=== PATIENT | male | born 1940 | race Caucasian/White ===

== ENCOUNTER 2021-06-04 14:45 | Observation (INO) ==
[2021-06-04 16:08] LABS: Basophils # 0.1 K/mcL (0.0-0.2); Basophils % 0.7 %; Eosinophils # 0.1 K/mcL (0.0-0.6); Eosinophils % 1.9 %; Hematocrit 27.9 % (37.5-50.1); Hemoglobin 7.3 g/dL (12.9-16.9); Immature Granulocytes % 0.4 % (0-4); Lymphocytes # 1.1 K/mcL (0.6-4.6); Lymphocytes % 14.2 %; Mean Corpuscular HGB Conc 26.2 g/dL (31.6-35.5); Mean Corpuscular Hemoglobin 18.7 pg (28.0-33.3); Mean Corpuscular Volume 71.4 fL (83.0-100.0); Mean Platelet Volume 9.9 fL (9.4-12.4); Monocytes # 0.4 K/mcL (0.0-1.3); Monocytes % 5.2 %; Neutrophils # 5.8 K/mcL (1.6-8.9); Platelet Count 364 K/mcL (140-400); Red Blood Count 3.91 M/mcL (4.19-5.50); Red Cell Distribution Width 21.8 % (11.5-14.5); Segmented Neutrophils % 77.6 %; White Blood Count 7.5 K/mcL (4.3-11.1)
[2021-06-04 16:19] LABS: Activated Partial Thrombo Time 67.7 Seconds (26.0-36.0)
[2021-06-04 16:23] LABS: Anisocytosis 2+ (Not Present); Hypochromasia Present (Not Present); Platelet Estimate Normal (Normal)
[2021-06-04 16:25] LABS: INR 6.3; Prothrombin Time 68.7 Seconds (9.4-12.1)
[2021-06-04 16:31] LABS: Alanine Aminotransferase 7 Units/L (7-52); Albumin 3.5 g/dL (3.5-5.7); Albumin/Globulin Ratio 0.9 (1.1-2.2); Alkaline Phosphatase 118 Units/L (34-104); Aspartate Amino Transferase 11 Units/L (13-39); BUN/Creatinine Ratio 23 (6-26); Bilirubin,Direct 0.2 mg/dL (0.0-0.2); Bilirubin,Indirect 0.4 mg/dL (0.0-1.0); Bilirubin,Total 0.6 mg/dL (0.3-1.0); Blood Urea Nitrogen 20 mg/dL (8-23); Calcium 8.3 mg/dL (8.6-10.3); Carbon Dioxide 24 mEq/L (23-29); Chloride 105 mEq/L (98-107); Globulin 4.1 g/dL (2.4-3.5); Glucose 146 mg/dL (70-105); Lipase 22 Units/L (11-82); Osmolality,Calculated 291 (280-300); Potassium 4.6 mEq/L (3.5-5.1); Sodium 138 mEq/L (136-145); Total Protein 7.6 g/dL (6.4-8.9); eGFR For African Americans > 60 (> 60); eGFR For Non-African Americans > 60 (> 60)
[2021-06-04 16:35] LABS: Troponin I 0.04 ng/mL (< 0.04)
[2021-06-04] MEDS ORDERED: Furosemide 40 MG/4 ML VIAL IVP ONE (17:18)
[2021-06-04 17:36] LABS: Bilirubin,Urine Negative (Negative); Blood,Urine Small (Negative); Clarity,Urine Clear (Clear); Color,Urine Yellow (Yellow); Glucose,Urine (UA) Normal (Normal); Ketones,Urine Negative (Negative); Leukocyte Esterase,Urine Trace (Negative); Nitrite,Urine Positive (Negative); PH,Urine 5.5 pH Units (5.0-8.0); Protein,Urine >=300 mg/dL (Neg-Trace); Specific Gravity,Urine 1.025 (1.010-1.025); Urobilinogen,Urine Normal (Normal)
[2021-06-04 17:41] LABS: Bacteria,Urine Many per hpf (None-Few); WBC,Urine 50-100 per hpf (0-3)
[2021-06-04] MEDS ORDERED: *HR* Phytonadione 5 MG TABLET PO ONE (17:57)
[2021-06-04] MEDS ORDERED: Acetaminophen 325 MG TABLET PO PRN (19:08)
[2021-06-04] MEDS ORDERED: Ondansetron 4 MG/2 ML VIAL IVP PRN (19:08)
[2021-06-04] MEDS ORDERED: Naloxone 0.4 MG/ML INJ IVP PRN (19:08)
[2021-06-04] MEDS ORDERED: Mag Hydrox/Al Hydrox/Simeth 30 ML UDC PO PRN (19:08)
[2021-06-04] MEDS ORDERED: MOM Conc 10 ML UD.LIQ PO PRN (19:08)
[2021-06-04] MEDS ORDERED: Dextrose Gel 15 GM/37.5 ML TUBE PO PRN ×2 (19:21)
[2021-06-04] MEDS ORDERED: *HR* Dextrose 50 % in Water (Syg) 50 ML SYRINGE IVP PRN (19:21)
[2021-06-04] MEDS ORDERED: D5% in Water 1,000 ML IVC PRN (19:21)
[2021-06-04] MEDS: *HR* Metformin 500 MG TABLET PO SCH (21:14)
[2021-06-04] MEDS: Gabapentin 400 MG CAPSULE PO SCH (21:14)
[2021-06-04] MEDS: Furosemide 20 MG/2 ML VIAL IVP SCH (21:15)
[2021-06-04] MEDS: Insulin LISPRO 300 UNITS/3 ML VIAL SUBQ SCH (21:16)
[2021-06-04 21:30] LABS: Estimated Average Glucose 192 mg/dl; Hemoglobin A1C 8.3 %
[2021-06-05] MEDS ORDERED: *HR* Promethazine 25 MG/ML VIAL IM ONE (00:38)
[2021-06-05] MEDS: *HR* OxyCODONE/APAP 10/325 TABLET PO PRN ×3 (04:36→20:12)
[2021-06-05 07:46] LABS: Basophils % 0.5 %; Eosinophils # 0.3 K/mcL (0.0-0.6); Eosinophils % 3.8 %; Hematocrit 29.4 % (37.5-50.1); Hemoglobin 7.7 g/dL (12.9-16.9); Immature Granulocytes % 0.3 % (0-4); Lymphocytes # 1.4 K/mcL (0.6-4.6); Lymphocytes % 18.8 %; Mean Corpuscular HGB Conc 26.2 g/dL (31.6-35.5); Mean Corpuscular Hemoglobin 18.4 pg (28.0-33.3); Mean Corpuscular Volume 70.3 fL (83.0-100.0); Mean Platelet Volume 9.8 fL (9.4-12.4); Monocytes # 0.6 K/mcL (0.0-1.3); Monocytes % 7.6 %; Neutrophils # 5.1 K/mcL (1.6-8.9); Platelet Count 387 K/mcL (140-400); Red Blood Count 4.18 M/mcL (4.19-5.50); Red Cell Distribution Width 21.9 % (11.5-14.5); White Blood Count 7.4 K/mcL (4.3-11.1)
[2021-06-05] MEDS: Insulin LISPRO 300 UNITS/3 ML VIAL SUBQ SCH ×4 (07:52→20:24)
[2021-06-05 08:17] LABS: BUN/Creatinine Ratio 21 (6-26); Blood Urea Nitrogen 23 mg/dL (8-23); Calcium 8.5 mg/dL (8.6-10.3); Carbon Dioxide 27 mEq/L (23-29); Chloride 102 mEq/L (98-107); Glucose 140 mg/dL (70-105); Osmolality,Calculated 294 (280-300); Potassium 4.4 mEq/L (3.5-5.1); Sodium 139 mEq/L (136-145); eGFR For African Americans > 60 (> 60); eGFR For Non-African Americans > 60 (> 60)
[2021-06-05 08:23] LABS: Troponin I 0.05 ng/mL (< 0.04)
[2021-06-05 08:25] LABS: Prothrombin Time 48.4 Seconds (9.4-12.1)
[2021-06-05 08:26] LABS: INR 4.4
[2021-06-05] MEDS: *HR* Metformin 500 MG TABLET PO SCH ×2 (08:39→20:14)
[2021-06-05] MEDS: Gabapentin 400 MG CAPSULE PO SCH ×3 (08:40→20:13)
[2021-06-05] MEDS ORDERED: lisinopriL 10 MG TABLET PO SCH (09:00)
[2021-06-05 09:05] LABS: Anisocytosis 2+ (Not Present); Hypochromasia Present (Not Present); Platelet Estimate Normal (Normal)
[2021-06-05] MEDS: Furosemide 20 MG/2 ML VIAL IVP SCH ×2 (10:00→20:14)
[2021-06-05] MEDS: cefTRIAXone 2,000 MG in 0.9 % Sodium Chloride Mini Bag 100 ML IVPB SCH (10:02)
[2021-06-05] MEDS: Metoprolol XL (24 HR) Succ 25 MG TAB.ER.24H PO SCH (16:40)
[2021-06-06] MEDS: *HR* OxyCODONE/APAP 10/325 TABLET PO PRN ×2 (03:45→20:27)
[2021-06-06 06:59] LABS: Basophils % 0.3 %; Eosinophils # 0.4 K/mcL (0.0-0.6); Eosinophils % 3.9 %; Hematocrit 24.5 % (37.5-50.1); Hemoglobin 6.5 g/dL (12.9-16.9); Immature Granulocytes % 0.2 % (0-4); Lymphocytes # 1.5 K/mcL (0.6-4.6); Lymphocytes % 15.7 %; Mean Corpuscular HGB Conc 26.5 g/dL (31.6-35.5); Mean Corpuscular Hemoglobin 18.8 pg (28.0-33.3); Mean Platelet Volume 9.9 fL (9.4-12.4); Monocytes # 0.6 K/mcL (0.0-1.3); Monocytes % 6.7 %; Neutrophils # 6.8 K/mcL (1.6-8.9); Platelet Count 363 K/mcL (140-400); Red Blood Count 3.45 M/mcL (4.19-5.50); Red Cell Distribution Width 21.9 % (11.5-14.5); Segmented Neutrophils % 73.2 %; White Blood Count 9.3 K/mcL (4.3-11.1)
[2021-06-06 07:20] LABS: Calcium 7.8 mg/dL (8.6-10.3); Potassium 5.2 mEq/L (3.5-5.1)
[2021-06-06 09:04] LABS: Hypochromasia Present (Not Present); Ovalocytes 1+ (Not Present)
[2021-06-06 09:05] LABS: Anisocytosis 2+ (Not Present); Microcytosis Present (Not Present); Platelet Estimate Normal (Normal)
[2021-06-06] MEDS ORDERED: 0.9 % Sodium Chloride 250 ML IVC SCH (10:00)
[2021-06-06] MEDS ORDERED: 0.9 % Sodium Chloride 1,000 ML IVC SCH ×2 (10:00→10:02)
[2021-06-06 10:21] LABS: INR 3.5
[2021-06-06] MEDS: Insulin LISPRO 300 UNITS/3 ML VIAL SUBQ SCH ×4 (10:25→20:28)
[2021-06-06] MEDS: Furosemide 20 MG/2 ML VIAL IVP SCH (10:36)
[2021-06-06] MEDS: Metoprolol XL (24 HR) Succ 25 MG TAB.ER.24H PO SCH (10:36)
[2021-06-06] MEDS: Gabapentin 400 MG CAPSULE PO SCH ×3 (10:36→20:28)
[2021-06-06] MEDS: cefTRIAXone 2,000 MG in 0.9 % Sodium Chloride Mini Bag 100 ML IVPB SCH (10:37)
[2021-06-06] MEDS: *HR* Metformin 500 MG TABLET PO SCH (10:37)
[2021-06-06 13:03] VITALS: RESP 18
[2021-06-06 16:31] LABS: Hematocrit 28.8 % (37.5-50.1)
[2021-06-06 23:56] VITALS: BP 107/66; PULSE 101; TEMP 98.6; O2SAT 97
== END 2021-06-07 00:50 | disposition short-term general hospital (02) ==
LOC: EMEROOPIK 14:45 → INPPIK 14:45
PROVIDERS: ADMIT Registered Nurse Emergency; ATTEND Registered Nurse Emergency